=== PATIENT | male | born 1960 | race American Indian/Alaskan Native ===

== ENCOUNTER 2024-06-02 07:38 | Outpatient (CLI) | payer BC, OTHER, MEDICARE ==
[~2024-06-02] VITALS: Ht 180.3 cm; Wt 97.5 kg
[2024-06-02 08:10] LABS: ABG BASE EXCESS 0.8 mmol/L (-2.0-3.0); ABG HCO3 25.3 mmol/L (21.0-28.0); ABG OXYGEN SATURATION 96.1 % (94.0-98.0); ABG PCO2 (T) 40.2 mmHg (35.0-48.0); ABG PH (T) 7.417 (7.350-7.450); ABG PO2 (T) 79.2 mmHg (83.0-108.0); ALLEN'S TEST POSITIVE; FCOHb 0.2 % (0.5-1.5); FHHb 3.9 % (0.0-5.0); FMetHb 0.3 % (0.0-1.5); FO2Hb 95.6 % (94.0-98.0); MODE ROOM AIR; TOTAL HEMOGLOBIN 18.3 G/dl (13.5-17.5)
[2024-06-02 08:27] VITALS: PULSE 55; RESP 15; O2SAT 95
[2024-06-02] MEDS: albuterol 2.5 MG/3 ML nebule NEB ONE (08:27)
[2024-06-02 08:40] VITALS: PULSE 64; RESP 15
== END 2024-06-02 23:59 | disposition home or self-care (01) ==
LOC: RT 07:38
PROVIDERS: ATTEND Family Medicine
DX: J40 Bronchitis, not specified as acute or chronic (principal); R05.9 Cough, unspecified
CPT/HCPCS: 36600; 82803; 85018; 94060; 94760